=== PATIENT | male | born 1965 | race Caucasian/White ===

== ENCOUNTER 2018-01-27 04:12 | Emergency (ER) | payer MEDICARE ==
[2018-01-27] MEDS ORDERED: GABAPENTIN 300 MG CAPSULE PO ONE (04:26)
--- NOTE | 2018-01-27 04:31 | ER Document Report ---
ED Neck/Back Problem - General Chief Complaint: Back Pain Stated Complaint: FALL,BACK PAIN Time Seen by Provider: 01/27/18 04:26 Notes: The patient is a 52-year-old male, past medical history chronic back pain, diabetes, peripheral neuropathy, presents with his usual low back pain and increased tingling down bilateral lateral legs. Patient said that he had a fall yesterday on his right hip, but the hip is not hurting him at this time. Patient recently moved here from [place] and was taking oxycodone, which he said helped his pain. He saw [facility] for the first time last week and was started on Dilaudid, which she says does not work. Patient denies worsening pain, fevers, difficulty walking, rash, change in bowel or bladder, saddle anesthesia or urinary symptoms. - Related Data Allergies/Adverse Reactions: methadone Allergy (Verified 01/27/18 04:57) Past Medical History - General Information source: Patient - Social History Smoking Status: Current Every Day Smoker Family History: Reviewed & Not Pertinent Review of Systems - Review of Systems Notes: REVIEW OF SYSTEMS: CONSTITUTIONAL: -fevers, -chills EENT: -eye pain, -difficulty swallowing, -nasal congestion CARDIOVASCULAR: -chest pain, -syncope. RESPIRATORY: -cough, -SOB GASTROINTESTINAL: -abdominal pain, -nausea, -vomiting, -diarrhea GENITOURINARY: -dysuria, -hematuria MUSCULOSKELETAL: +back pain, -neck pain SKIN: -rash or skin lesions. HEMATOLOGIC: -easy bruising or bleeding. LYMPHATIC: -swollen, enlarged glands. NEUROLOGICAL: -altered mental status or loss of consciousness, -headache, + tingling down B/L lateral legs PSYCHIATRIC: -anxiety, -depression. ALL OTHER SYSTEMS REVIEWED AND NEGATIVE. Physical Exam - Vital signs Vitals: Temp Pulse Resp BP Pulse Ox 98.5 F 88 18 125/80 99 01/27/18 04:27 01/27/18 04:27 01/27/18 04:27 01/27/18 04:27 01/27/18 04:27 - Notes Notes: PHYSICAL EXAMINATION: GENERAL: Well-appearing, well-nourished and in no acute distress. HEAD: Atraumatic, normocephalic. EYES: Pupils equal round and reactive to light, extraocular movements intact, sclera anicteric, conjunctiva are normal. ENT: nares patent, oropharynx clear without exudates. Moist mucous membranes. NECK: Normal range of motion, supple without lymphadenopathy LUNGS: Breath sounds clear to auscultation bilaterally and equal. No wheezes rales or rhonchi. HEART: Regular rate and rhythm without murmurs ABDOMEN: Soft, nontender, normoactive bowel sounds. No guarding, no rebound. No masses appreciated. EXTREMITIES: Normal range of motion, no pitting or edema. No cyanosis. Strong distal pulses. BACK: No midline tenderness. Tenderness over B/L lower paraspinal muscles. NEUROLOGICAL: Cranial nerves grossly intact. Normal speech, normal gait. 5/5 strength in all 4 extremities. Tingling down B/L lateral legs. PSYCH: Normal mood, normal affect. SKIN: Warm, Dry, normal turgor, no rashes or lesions noted. Course - Re-evaluation Re-evalutation: Patient with chronic back pain and some increased tingling down both of his lateral legs. He has no red flag signs for low back pain at this time. He already saw pain management for this and instructed him that he needs to continue to follow-up with pain management or his primary care physician for further evaluation and treatment of this chronic back pain. Instructed him that the in the emergency room will not be able to provide him with any narcotics for this back pain. He was also given a copy of the [facility] Narcotics Guidelines. Since his pain seems neuropathic in nature, will begin him on gabapentin. Given very strict return precautions and he understands. - Vital Signs Vital signs: Temp Pulse Resp BP Pulse Ox 98.5 F 88 18 125/80 99 01/27/18 04:27 01/27/18 04:27 01/27/18 04:27 01/27/18 04:27 01/27/18 04:27 Discharge - Discharge Clinical Impression: Chronic back pain Qualifiers: Back pain location: low back pain Back pain laterality: bilateral Sciatica presence: with sciatica Sciatica laterality: bilateral sciatica Qualified Code(s ): M54.42 - Lumbago with sciatica, left side Radiculopathy Qualifiers: Spinal region: lumbar Qualified Code(s): M54.16 - Radiculopathy, lumbar region Condition: Stable Disposition: HOME, SELF-CARE Additional Instructions: The emergency room is not the correct treatment facility for chronic pain. You must follow-up with your pain management physician or primary care physician for further evaluation and treatment. You may begin trying gabapentin to help with your nerve pain and back pain. LOW BACK PAIN: Three out of every four people will have an episode of disabling back pain during their lifetime. Most commonly the pain is due to straining of the muscles and ligaments in the low back. Usual treatment includes: (1) Rest on a firm surface. Avoid lying on your stomach. (2) Ice pack the painful area. After a few days, gentle heat may be used intermittently to relax the area, or ice packs can be continued. (3) Medication may be needed -- muscle relaxers and antiinflammatory medicines are commonly used. (4) As the back improves, exercises are prescribed to strengthen the back and abdominal muscles. Your doctor will advise you on the proper care for your back at each stage in your recovery. You may be better in a few days -- or healing may take several weeks. If new symptoms of a "herniated disc" (radiation of pain, numbness, or tingling down the back of the leg or weakness in the leg) occur, you should be re-examined. Further testing may be necessary. ICE PACKS: Apply ice packs frequently against the painful area. Many different schedules are recommended, such as "20 minutes on, 20 minutes off" or "one hour ice, two hours rest." If you need to work, you may need to go longer between ice treatments. You should plan to have the area ice packed AT LEAST one fourth of the time. The ice should be applied over the wrap, tape, or splint, or over a layer of cloth -- not directly against the skin. Some ice bags have a built-in cloth and can be put directly on the skin. WARM PACKS: After approximately two days, apply gentle heat (such as a heating pad or hot water bottle) for about 20 to 30 minutes about every two hours -- at least four times daily. Warmth and elevation will help you make a more rapid recovery , and will ease the pain considerably. Do not use HOT heat, and never apply heat for longer than 30 minutes. The continuous heat can invisibly damage skin and muscles -- even when no burn is seen on the surface. Damaged muscles can make you MORE sore. FOLLOW-UP CARE: If you have been referred to a physician for follow-up care, call the physician s office for an appointment as you were instructed or within the next two days. If you experience worsening or a significant change in your symptoms, notify the physician immediately or return to the Emergency Department at any time for re-evaluation. Prescriptions: Gabapentin [Neurontin 300 mg Capsule] 300 mg PO Q8 #12 cap Referrals: [facility] [Provider Group] - Follow up as needed
[2018-01-27 04:57] VITALS: BP 125/80
== END 2018-01-27 04:58 | disposition home or self-care (01) ==
LOC: ER 04:12
DX: G89.29 Other chronic pain (principal); M54.16 Radiculopathy, lumbar region; M54.41 Lumbago with sciatica, right side; M54.42 Lumbago with sciatica, left side; E11.40 Type 2 diabetes mellitus with diabetic neuropathy, unspecified; Z79.891 Long term (current) use of opiate analgesic; F17.200 Nicotine dependence, unspecified, uncomplicated; Z88.5 Allergy status to narcotic agent
CPT/HCPCS: 99283; A9270

== ENCOUNTER 2018-02-01 04:08 | Emergency (ER) | payer MEDICARE ==
[2018-02-01] MEDS ORDERED: BACITRACIN ZINC OINTMENT 15 GM TP ONE (04:40)
--- NOTE | 2018-02-01 04:43 | ER Document Report ---
ED General - General Chief Complaint: Fall Stated Complaint: FALL WITH INJURY Time Seen by Provider: 02/01/18 04:26 Mode of Arrival: Medic Information source: Patient, Emergency Med Personnel TRAVEL OUTSIDE OF THE [place] IN LAST 30 DAYS: No - HPI Notes: Patient is a 52-year-old white male history of chronic back pain and previous back surgeries presents to the emergency department with report that he fell several times sustaining injury to the left lateral rib cage and striking his head and both hands and also his lower back. The patient reports chronic pain to the lower back, but he states is currently worse. 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 The patient questions a loss of consciousness after the fall and head injury. The patient states his last tetanus was 3-1/2 years ago. He denies any anterior chest pain. He reports no abdominal pain or numbness or paresthesia or nausea or vomiting. Patient reports no incontinence or seizure activity. He does report chronic lower back pain that radiates down his legs from his old back surgery and previous injury. Patient denies any hematuria. He reports no incontinence. No neck pain. Patient admits to alcohol earlier in the evening. He lives with his mother. - Related Data Allergies/Adverse Reactions: methadone Allergy (Verified 01/27/18 04:57) Past Medical History - General Information source: Patient - Social History Smoking Status: Unknown if Ever Smoked Chew tobacco use (# tins/day): No Frequency of alcohol use: Heavy Drug Abuse: None Lives with: Family Family History: Reviewed & Not Pertinent Patient has suicidal ideation: No Patient has homicidal ideation: No - Past Medical History Cardiac Medical History: Reports: Hx Hypertension Endocrine Medical History: Reports: Hx Diabetes Mellitus Type 2 Renal/ Medical History: Denies: Hx Peritoneal Dialysis Past Surgical History: Reports: Hx Orthopedic Surgery - carpal tunnel Review of Systems - Review of Systems Notes: REVIEW OF SYSTEMS: CONSTITUTIONAL : Denies fever, chills, or sweats. EENT: Denies eye, ear, throat, or mouth pain or symptoms. Denies nasal or sinus congestion or discharge. Denies throat, tongue, or mouth swelling or difficulty swallowing. CARDIOVASCULAR: Denies palpitations or racing or irregular heart beat. Denies ankle edema. RESPIRATORY: Denies cough, cold, or chest congestion. Denies shortness of breath, difficulty breathing, or wheezing. GASTROINTESTINAL: Denies abdominal pain or distention. Denies nausea, vomiting , or diarrhea. Denies blood in vomitus, stools, or per rectum. Denies black, tarry stools. Denies constipation. GENITOURINARY: Denies difficulty urinating, painful urination, burning, frequency, blood in urine, or discharge. MUSCULOSKELETAL: Denies neck pain or stiffness. Denies joint pain or swelling. SKIN: Denies rash. Reports abrasions. HEMATOLOGIC : Denies easy bruising or bleeding. LYMPHATIC: Denies swollen, enlarged glands. NEUROLOGICAL: Denies confusion or altered mental status. Denies passing out or loss of consciousness. Denies dizziness or lightheadedness. Denies headache. Denies weakness or paralysis or loss of use of either side. Denies problems with gait or speech. Denies sensory loss, numbness, or tingling. Denies seizures. PSYCHIATRIC: Denies anxiety or stress. Denies depression, suicidal ideation, or homicidal ideation. ALL OTHER SYSTEMS REVIEWED AND NEGATIVE. Dictation was performed using [employer] voice recognition software Physical Exam - Vital signs Vitals: Temp Pulse Resp BP Pulse Ox 97.8 F 89 20 137/75 H 95 02/01/18 04:24 02/01/18 04:24 02/01/18 04:24 02/01/18 04:24 02/01/18 04:24 - Notes Notes: PHYSICAL EXAMINATION: GENERAL: Well-appearing, well-nourished and in no acute distress. HEAD: Abrasion and contusion right parieto-occipital region. No bony deformity or crepitance. No evidence for any facial trauma.. EYES: Pupils equal round and reactive to light, extraocular movements intact, sclera anicteric, conjunctiva are normal. ENT: Nares patent, oropharynx clear without exudates. Moist mucous membranes. NECK: Normal range of motion, supple without lymphadenopathy LUNGS: Breath sounds clear to auscultation bilaterally and equal. No wheezes rales or rhonchi. Patient has pain appreciated through the left lateral rib cage extending around to the back. There is no crepitance or bony deformity or subcutaneous emphysema or obvious bruising noted. HEART: Regular rate and rhythm without murmurs ABDOMEN: Soft, nontender, nondistended abdomen. No guarding, no rebound. No masses appreciated. Musculoskeletal: Normal range of motion, no pitting or edema. No cyanosis. Patient has pain throughout the lower lumbar spine with an old surgical scar. There is no crepitance or bony deformity. NEUROLOGICAL: Cranial nerves grossly intact. Normal speech, normal gait. Normal sensory, motor exams. No saddle anesthesia. Normal motor and sensory exam in both lower extremities. PSYCH: Normal mood, normal affect. SKIN: Warm, Dry, normal turgor abrasions noted on both hands. No bony deformity or crepitance. There is full range of motion. Course - Re-evaluation Re-evalutation: 02/01/18 04:44 Abrasions were cleaned and antibiotic ointment was applied. Patient was informed that he needed to follow-up with his regular auto painter helper related to his chronic pain condition. 02/01/18 05:54 Patient with potassium of 6.1 but no other evidence for renal insufficiency. We will get patient's medication list to assess better. Patient had a negative head CT, showing no evidence for acute intracranial injury. We will give the patient normal saline bolus 1 L and repeat potassium. Patient also has anterior wedging of T12/L1 of questionable acuity. We will obtain CT scan of the thoracic and lumbar spine to assess this area better. Care turned over to oncoming practitioner. - Vital Signs Vital signs: Temp Pulse Resp BP Pulse Ox 97.8 F 89 20 137/75 H 95 02/01/18 04:24 02/01/18 04:24 02/01/18 04:24 02/01/18 04:24 02/01/18 04:24 - Laboratory Result Diagrams: 02/01/18 03:45 02/01/18 03:45 Laboratory results interpreted by me: 02/01/18 02/01/18 03:45 04:57 Sodium 146.8 H Potassium 6.1 H* Glucose 236 H Calcium 11.2 H Magnesium 1.5 L Urine Glucose (UA) 150 H - EKG Interpretation by Ga EKG shows normal: Sinus rhythm Additional EKG results interpreted by me: 02/01/18 04:54 EKG as interpreted by me showed normal sinus rhythm heart rate of 87. There is no gross evidence for acute RI or ischemia noted. There Is No Old EKG Available for Comparison. Discharge - Discharge Clinical Impression: Alcohol abuse, Abrasion Accidental fall Qualifiers: Encounter type: initial encounter Qualified Code(s): W19.XXXA - Unspecified fall, initial encounter Referrals: BHUPENDRA KABA MD [Primary Care Provider] - Follow up as needed
[2018-02-01 05:08] LABS: ABSOLUTE EOSINOPHILS # (AUTO) 0.2 10^3/uL (0.0-0.6); ABSOLUTE LYMPHOCYTES (AUTO) 2.1 10^3/uL (0.5-4.7); ABSOLUTE MONOCYTES (AUTO) 0.6 10^3/uL (0.1-1.4); BASOPHILS % (AUTO) 0.4 % (0-2); EOSINOPHILS % (AUTO) 2.3 % (0-6); HEMOGLOBIN 15.4 g/dL (13.5-17.0); LYMPHOCYTES % (AUTO) 20.8 % (13-45); MEAN CORPUSCULAR HEMOGLOBIN 30.6 pg (27.0-33.4); MEAN CORPUSCULAR HGB CONC 34.1 g/dL (32.0-36.0); MEAN CORPUSCULAR VOLUME 90 fl (80-97); MONOCYTES % (AUTO) 6.4 % (3-13); PLATELET COUNT 261 10^3/uL (150-450); RED BLOOD COUNT 5.03 10^6/uL (4.35-5.55); RED CELL DISTRIBUTION WIDTH 13.7 % (11.5-14.0); SEGMENTED NEUTROPHILS % (AUTO) 70.1 % (42-78); TOTAL CELLS COUNTED % (AUTO) 100 %; WHITE BLOOD COUNT 9.9 10^3/uL (4.0-10.5)
[2018-02-01 05:26] LABS: ALANINE AMINOTRANSFERASE 42 U/L (21-72); ALBUMIN 4.9 g/dL (3.5-5.0); ALCOHOL 105 mg/dL (NONE DETECTED); ALKALINE PHOSPHATASE 67 U/L (38-126); ANION GAP 16 (5-19); ASPARTATE AMINO TRANSFERASE 24 U/L (17-59); BILIRUBIN,DIRECT 0.2 mg/dL (0.0-0.4); BILIRUBIN,TOTAL 0.3 mg/dL (0.2-1.3); BLOOD UREA NITROGEN 18 mg/dL (7-20); CALCIUM 11.2 mg/dL (8.4-10.2); CARBON DIOXIDE 26 mmol/L (22-30); CHLORIDE 105 mmol/L (98-107); GLUCOSE 236 mg/dL (75-110); SODIUM 146.8 mmol/L (137-145); TOTAL PROTEIN 7.4 g/dL (6.3-8.2)
--- NOTE | 2018-02-01 05:30 | RADIOLOGY REPORT (SQ) ---
EXAM DESCRIPTION: CHEST PA/LAT CLINICAL HISTORY: 52 years, Male, fall with L lateral chest wall pain COMPARISON: None. NUMBER OF VIEWS: 2 LIMITATIONS: None. FINDINGS: Small bilateral nonspecific smooth pleural prominence. Moderate lung volume with clear parenchyma. Normal cardiac silhouette. Atherosclerosis. Mild anterior vertebral wedging at the thoracolumbar junction. IMPRESSION: No acute cardiopulmonary findings.
[2018-02-01 05:31] LABS: POTASSIUM 6.1 mmol/L (3.6-5.0)
--- NOTE | 2018-02-01 05:33 | RADIOLOGY REPORT (SQ) ---
EXAM DESCRIPTION: L SPINE WHOLE CLINICAL HISTORY: 52 years, Male, fall with back pain COMPARISON: None. NUMBER OF VIEWS: 5 LIMITATIONS: None. FINDINGS: Posterior L4-L5 hardware fusion, intervertebral disc replacement between the L4 and S1 levels, mild anterior vertebral wedging at the T11-L1 levels, atherosclerosis, and mild lumbar straightening. IMPRESSION: Mild T11-L1 anterior vertebral compression deformities of indeterminate age. Prior surgery at the L4-S1 levels.
[2018-02-01 05:34] LABS: APPEARANCE,URINE CLEAR; BILIRUBIN,URINE NEGATIVE (NEGATIVE); COLOR,URINE STRAW; GLUCOSE, URINE 150 mg/dL (NEGATIVE); KETONES,URINE NEGATIVE (NEGATIVE); LEUKOCYTE ESTERASE,URINE NEGATIVE (NEGATIVE); NITRITE,URINE NEGATIVE (NEGATIVE); PROTEIN,URINE NEGATIVE (NEGATIVE); URINE SPECIFIC GRAVITY 1.005; UROBILINOGEN,URINE NEGATIVE mg/dL (<2.0)
--- NOTE | 2018-02-01 05:35 | RADIOLOGY REPORT (SQ) ---
EXAM DESCRIPTION: CT HEAD WITHOUT CLINICAL HISTORY: 52 years Male, fall with head injury COMPARISON: None. TECHNIQUE: No contrast. This exam was performed according to our departmental dose-optimization program, which includes automated exposure control, adjustment of the mA and/or kV according to patient size and/or use of iterative reconstruction technique. FINDINGS: No hemorrhage or infarct. No mass, mass effect, or midline shift. Atherosclerosis. Brain and extra-axial structures appear otherwise intact. IMPRESSION: No acute findings.
[2018-02-01 05:43] LABS: URINE AMPHETAMINES SCREEN UNCONFIRMED POSITIVE; URINE BARBITURATES SCREEN NEGATIVE; URINE BENZODIAZEPINES SCREEN NEGATIVE; URINE COCAINE SCREEN NEGATIVE; URINE MARIJUANA (THC) SCREEN NEGATIVE; URINE METHADONE SCREEN NEGATIVE; URINE PHENCYCLIDINE SCREEN NEGATIVE
[2018-02-01] MEDS ORDERED: NORMAL SALINE 1000 ML 1,000 ML IV ONE (05:49)
--- NOTE | 2018-02-01 07:44 | RADIOLOGY REPORT (SQ) ---
EXAM DESCRIPTION: CT THORACIC SPINE WITHOUT (accession [id number]), CT LUMBAR SPINE WITHOUT (accession [id number]) CLINICAL HISTORY: 52 years Male, fall with spine pain, lower T spine COMPARISON: None. TECHNIQUE: No contrast. Coronal and sagittal reformat. This exam was performed according to our departmental dose-optimization program, which includes automated exposure control, adjustment of the mA and/or kV according to patient size and/or use of iterative reconstruction technique. FINDINGS: Minimal anterior vertebral height loss at the T11-L1 levels. 1.6 cm focal sclerosis of the anteroinferior T12 vertebral body. Partially imaged small focal sclerosis of the right paracentral sacrum near the sacroiliac joint and of the right iliac wing, partially imaged, image 92 of series 3. Posterior L4-L5 hardware fusion and intervertebral disc replacement between the L4 and S1 levels. Normal alignment and curvature. Normal alignment. Partial resection of posterior elements between the L4 and S1 levels. Mild posterior mediastinal lymphadenopathy includes a 1.1 x 0.8 cm lymph node, image 72 of series 4. Visualized posterior chest, retroperitoneum, and soft tissues of the back appear otherwise unremarkable. Small disc bulge at the L1-L2 level causes mild spinal canal stenosis. L5-S1 spondylosis and small residual disc bulge-osteophyte complex contribute to mild bilateral L5 foraminal stenoses. IMPRESSION: 1. Mild, likely developmental anterior vertebral height loss at the thoracolumbar junction. Differential diagnosis includes mild anterior compression deformity of indeterminate age. 2. Three focal areas of sclerosis including T12, the right paracentral sacrum, and right iliac wing. Cannot exclude neoplastic processes. Recommend whole body bone scan.
--- NOTE | 2018-02-01 07:44 | RADIOLOGY REPORT (SQ) ---
EXAM DESCRIPTION: CT THORACIC SPINE WITHOUT (accession [id number]), CT LUMBAR SPINE WITHOUT (accession [id number]) CLINICAL HISTORY: 52 years Male, fall with spine pain, lower T spine COMPARISON: None. TECHNIQUE: No contrast. Coronal and sagittal reformat. This exam was performed according to our departmental dose-optimization program, which includes automated exposure control, adjustment of the mA and/or kV according to patient size and/or use of iterative reconstruction technique. FINDINGS: Minimal anterior vertebral height loss at the T11-L1 levels. 1.6 cm focal sclerosis of the anteroinferior T12 vertebral body. Partially imaged small focal sclerosis of the right paracentral sacrum near the sacroiliac joint and of the right iliac wing, partially imaged, image 92 of series 3. Posterior L4-L5 hardware fusion and intervertebral disc replacement between the L4 and S1 levels. Normal alignment and curvature. Normal alignment. Partial resection of posterior elements between the L4 and S1 levels. Mild posterior mediastinal lymphadenopathy includes a 1.1 x 0.8 cm lymph node, image 72 of series 4. Visualized posterior chest, retroperitoneum, and soft tissues of the back appear otherwise unremarkable. Small disc bulge at the L1-L2 level causes mild spinal canal stenosis. L5-S1 spondylosis and small residual disc bulge-osteophyte complex contribute to mild bilateral L5 foraminal stenoses. IMPRESSION: 1. Mild, likely developmental anterior vertebral height loss at the thoracolumbar junction. Differential diagnosis includes mild anterior compression deformity of indeterminate age. 2. Three focal areas of sclerosis including T12, the right paracentral sacrum, and right iliac wing. Cannot exclude neoplastic processes. Recommend whole body bone scan.
[2018-02-01] MEDS ORDERED: HYDROMORPHONE HCL 2 MG TABLET PO ONE ×2 (07:48→13:05)
[2018-02-01] MEDS ORDERED: FUROSEMIDE INJ/PF 40 MG/4 ML SDV IV ONE (07:49)
--- NOTE | 2018-02-01 13:14 | RADIOLOGY REPORT (SQ) ---
EXAM DESCRIPTION: NM WHOLE BODY BONE SCAN COMPLETED DATE/TIME: 02/01/2018 12:37 pm REASON FOR STUDY: abnormal CT scan, no follow-up, possible neoplasm COMPARISON: X-rays and CT scans of the spine dated 02/01/2018. RADIONUCLIDE AND DOSE: 20.1 millicuries Tc99m HDP. The route of agent administration: Intravenous. ADDITIONAL DRUGS AND DOSES: None. TECHNIQUE: Routine delayed images at 3 hour post radionuclide injection acquired of the bony skeleto n including anterior and posterior whole-body projections and additional focused images as needed. LIMITATIONS: None. FINDINGS: BONES: Focal areas of activity in the shoulders and knees consistent with degenerative clint nt disease. No other areas of abnormal bony uptake. No abnormal findings in the spine or pelvis. KIDNEYS: Symmetric excretion without obstruction. OTHER: No other significant finding. IMPRESSION: NORMAL BONE SCAN. ACTIVITY IN THE SHOULDERS AND KNEES CONSISTENT WITH DEGENERATIVE JOIN T DISEASE. COMMENT: Quality measure 147: Current bone scan is compared with any available plain radiographs, p rior bone scans, and CT/MRI. TECHNICAL DOCUMENTATION: JOB ID: [id number] [employer]- All Rights Reserved Reading location - IP/workstation name: [email or web address]
[2018-02-01 13:45] VITALS: BP 140/90
--- NOTE | 2018-02-02 08:22 | EKG REPORT ---
SEVERITY:- BORDERLINE ECG - SINUS RHYTHM PROBABLE LEFT ATRIAL ABNORMALITY : Confirmed by: Nabeel Etienne MD 02-Feb-2018 08:21:23
== END 2018-02-01 13:45 | disposition home or self-care (01) ==
LOC: ER 04:08
DX: S00.93XA Contusion of unspecified part of head, initial encounter (principal); S60.512A Abrasion of left hand, initial encounter; S60.511A Abrasion of right hand, initial encounter; R07.81 Pleurodynia; W19.XXXA Unspecified fall, initial encounter; M54.5 Low back pain; G89.29 Other chronic pain; E87.5 Hyperkalemia; F10.10 Alcohol abuse, uncomplicated; M89.9 Disorder of bone, unspecified; I10 Essential (primary) hypertension; E11.9 Type 2 diabetes mellitus without complications; Z98.890 Other specified postprocedural states; Z79.891 Long term (current) use of opiate analgesic; Z88.5 Allergy status to narcotic agent
CPT/HCPCS: 93005; 99285; 96361; 96374; 96375; 36415; 80307 ×2; 83735; 84132; 85025; 80053; 81001; 84484; 71046; 72110; 78306; 70450; 72128; 72131; 93010; A9561; J1940; A9270; J7030; Q9969; J3490